=== PATIENT | female | born 1970 | race Caucasian/White ===

== ENCOUNTER 2016-10-11 15:01 | Outpatient (CLI) | payer BC, OTHER | END 2016-10-11 15:02 | disposition home or self-care (01) | DX: R53.83 Other fatigue (principal); Z98.84 Bariatric surgery status ==

== ENCOUNTER 2017-05-08 10:08 | Emergency (ER) | payer BC, OTHER ==
[2017-05-08 12:04] VITALS: BP 137/90
--- NOTE | 2017-05-08 12:23 | ED Physician Documentation ---
PD HPI NECK PAIN - Stated complaint Stated Complaint: NECK/SHOULDER/BACK PX - Chief complaint Chief Complaint: Back Pain - History obtained from History obtained from: Patient - History of Present Illness Timing - duration: Days Timing - details: Gradual onset, Still present Location: Lower (pain lower neck and right thoracic area at medial scapular and to suprascapular area for several days, worsening. Hurts even with rest and worse with ROM of the shoulder and neck. No rash nor sores. No numbness in arm. No acute injury.), Right Quality: Pain, Sharp, Aching. No: Spasm Associated symptoms: No: Fever, Weakness, Numbness Worsened by: Movement Contributing factors: No: Trauma Similar symptoms before: No diagnosis (has had this area hurt at times for a day or so, but usually better with heat and OTC meds.) Recently seen: Not recently seen Review of Systems Constitutional: denies: Fever, Chills Cardiac: denies: Chest pain / pressure Respiratory: denies: Dyspnea Skin: denies: Rash, Lesions Neurologic: denies: Focal weakness, Numbness PD PAST MEDICAL HISTORY - Past Medical History Past Medical History: No Endocrine/Autoimmune: None Musculoskeletal: None - Present Medications Home Medications: Ambulatory Orders Medication Instructions Recorded Confirmed Bupropion HCl [Bupropion Xl] 0 mg PO DAILY 05/08/17 05/08/17 Dexamethasone [Decadron] 4 mg PO DAILY #5 tablet 05/08/17 HYDROcod/ACETAM 5/325 [Mather 5/325] 1 tab PO Q6H PRN #20 tablet 05/08/17 Methocarbamol [Robaxin] 500 mg PO Q6H PRN #25 tablet 05/08/17 Naproxen 375 mg PO BID #20 tablet 05/08/17 - Allergies Allergies/Adverse Reactions: Allergies Allergy/AdvReac Type Severity Reaction Status Date / Time morphine Allergy Unknown Verified 05/08/17 10:16 - Social History Does the pt smoke?: No Smoking Status: Never smoker PD ED PE NORMAL - Vitals Vital signs reviewed: Yes - General General: Alert and oriented X 3, Well developed/nourished, Other (appears uncomfortable. Able to lift arm over head and just seems to hurt without particular limit ROM. Gestures to medial scapular and suprascapular area as worst pain. ) - Neck Neck: Supple, no meningeal sign, No adenopathy - Cardiac Cardiac: RRR, No murmur - Respiratory Respiratory: Clear bilaterally - Back Back: No spinal TTP, Other (tender with couple trigger points worse pain at medial scapula right side and suprascapular as well. Generally tender in muscles there. Not tender at shoulder itself, and has ROM of the shoulder. ) - Derm Derm: Normal color, Warm and dry, No rash Results - Vitals Vitals: Vital Signs - 24 hr 05/08/17 05/08/17 10:13 12:02 Temperature 36.8 C 36.7 C Heart Rate 74 72 Respiratory 18 16 Rate Blood Pressure 174/94 H 137/90 H O2 Saturation 100 99 Oxygen O2 Source Room air PD MEDICAL DECISION MAKING - ED course Complexity details: considered differential (seems muscular and there are couple trigger points medial scapular and suprascapular which I injected with Marcaine/Kenalog. No rash to area and has been few days of this, so does not seem shingles though character of it considered.), d/w patient Departure - Departure Disposition: 01 Home, Self Care Clinical Impression: Acute thoracic back pain Qualifiers: Back pain laterality: right Qualified Code(s): M54.6 - Pain in thoracic spine Condition: Stable Record reviewed to determine appropriate education?: Yes Instructions: ED Sprain Thoracic Spine Follow-Up: Tabby Odell PA-C [Primary Care Provider] - Prescriptions: Dexamethasone [Decadron] 4 mg PO DAILY #5 tablet HYDROcod/ACETAM 5/325 [Mather 5/325] 1 tab PO Q6H PRN #20 tablet PRN Reason: Pain Methocarbamol [Robaxin] 500 mg PO Q6H PRN #25 tablet PRN Reason: Spasms Naproxen 375 mg PO BID #20 tablet Comments: Heat to the shoulder and upper back periodically to help with spasms and stiffness. Anti-inflammatory such as naproxen twice daily and add hydrocodone if needed for pain. Also do a short course of an oral steroid as well for an anti-inflammatory effect. Add Robaxin muscle relaxant for stiffness. Massage and chiropractic or good treatments as well. Follow-up with your primary care if not better over the next 3-5 days. Forms: Activity restrictions Discharge Date/Time: 05/08/17 13:05
[2017-05-08] MEDS ORDERED: HYDROcod/ACETAM 5/325 MG TABLET PO STA (12:37)
[2017-05-08] MEDS ORDERED: METHOCARBAMOL 500 MG TABLET PO STA (12:37)
[2017-05-08] MEDS ORDERED: IBUPROFEN 400 MG TABLET PO STA (12:37)
[2017-05-08] MEDS ORDERED: TRIAMCINOLONE 40 MG/ML VIAL IM STA (12:37)
[2017-05-08] MEDS ORDERED: HYDROcod/ACETAM 5/325 MG TABLET ONE (12:43)
[2017-05-08] MEDS ORDERED: METHOCARBAMOL 500 MG TABLET PO ONE (12:44)
[2017-05-08] MEDS ORDERED: TRIAMCINOLONE 40 MG/ML VIAL ONE (12:44)
[2017-05-08] MEDS ORDERED: IBUPROFEN 400 MG TABLET PO ONE (12:47)
== END 2017-05-08 13:05 | disposition home or self-care (01) ==
LOC: ED 10:08
DX: M54.6 Pain in thoracic spine (principal); M54.2 Cervicalgia; M25.519 Pain in unspecified shoulder
CPT/HCPCS: 96372; 99283; A9270